=== PATIENT | female | born 1985 ===

== ENCOUNTER 2024-07-31 23:53 | Emergency (ER) | payer OTHER ==
[~2024-07-31] VITALS: Ht 160 cm; Wt 72.6 kg
[2024-08-01] MEDS ORDERED: FentaNYL Citrate 50 MCG/ML 2 ML Injection IV ONE (00:05)
[2024-08-01 00:19] LABS: BASOPHILS ABSOLUTE AUTO 0.05 K/mm3 (0.00-0.23); BASOPHILS PERCENT AUTO 0 % (0-2); EOSINOPHILS ABSOLUTE AUTO 0.25 K/mm3 (0.00-0.68); EOSINOPHILS PERCENT AUTO 2 % (0-6); Hematocrit 34.6 % (33.0-51.0); Hemoglobin 11.4 g/dL (11.5-16.0); IMMATURE GRAN ABSOLUTE AUTO 0.07 K/mm3 (0.00-0.10); IMMATURE GRAN PERCENT AUTO 0 % (0-1); LYMPHOCYTES ABSOLUTE AUTO 3.75 K/mm3 (0.84-5.20); LYMPHOCYTES PERCENT AUTO 23 % (21-46); MONOCYTES ABSOLUTE AUTO 1.22 K/mm3 (0.16-1.47); MONOCYTES PERCENT AUTO 7 % (4-13); Mean Corpuscular HGB 29.5 pg (26.0-34.0); Mean Corpuscular HGB Conc 32.9 g/dL (31.5-36.5); Mean Corpuscular Volume 90 fL (80-100); Mean Platelet Volume 9.9 fL (9.1-12.4); NEUTROPHILS ABSOLUTE AUTO 11.13 K/mm3 (1.96-9.15); NEUTROPHILS PERCENT AUTO 68 % (41-73); Platelet Count 232 K/mm3 (150-400); RDW Coefficient Variation 12.1 % (11.7-14.2); RDW Standard Deviation 39.8 fL (35.1-46.3); Red Blood Cell Count 3.86 M/mm3 (3.80-5.20); White Blood Cell Count 16.47 K/mm3 (4.00-11.30)
[2024-08-01 00:20] VITALS: BP 135/69
[2024-08-01 00:48] LABS: Albumin, Blood 2.8 g/dL (3.4-5.0); Albumin/Globulin Ratio 0.7 (0.8-1.8); Bilirubin, Total 0.2 mg/dL (0.1-1.0); Bun/Creatinine Ratio 16.2 (12.0-20.0); Calcium, Blood 8.9 mg/dL (8.5-10.1); Creatinine, Blood 0.55 mg/dL (0.40-1.00); Globulin, Blood 3.9 g/dL (2.2-4.0); Potassium, Blood 3.5 mmol/L (3.5-5.5); Total Protein, Blood 6.7 g/dL (6.4-8.2)
== END 2024-08-01 00:28 | disposition other institution (70) ==
LOC: ER 23:53
PROVIDERS: Student in an Organized Health Care Education/Training Program
DX: O03.9 Complete or unspecified spontaneous abortion without complication (principal); O62.3 Precipitate labor; Z3A.17 17 weeks gestation of pregnancy; Z37.1 Single stillbirth
CPT/HCPCS: 80053; 85025; 86850; 86900; 86901; 96374; 99284; J3010

== ENCOUNTER 2024-08-01 00:44 | Inpatient (IN) | payer OTHER ==
[2024-08-01] VITALS (43 sets, daily range): BP systolic 85–143; BP diastolic 43–68
[~2024-08-01] VITALS: Ht 167.6 cm; Wt 95.5 kg
[~2024-08-01 00:44] MED LIST: Misoprostol 200 MCG Tab PR ONE
[2024-08-01] MEDS ORDERED: Methylergonovine Maleate 0.2MG / ML 1ML Amp IM ONE (00:55)
[2024-08-01] MEDS ORDERED: Lactated Ringer's 1,000 ML IV ONE ×3 (00:57→05:05)
[2024-08-01] MEDS ORDERED: FentaNYL Citrate 50 MCG/ML 2 ML Injection IV PRN (01:15)
[2024-08-01] MEDS ORDERED: FentaNYL Citrate 50 MCG/ML 2 ML Injection ONE (01:19)
[2024-08-01] MEDS ORDERED: FentaNYL Citrate 50 MCG/ML 2 ML Injection IV ONE (01:55)
[2024-08-01] MEDS ORDERED: Ketorolac Tromethamine 30mg Vial IV PRN ×2 (01:55→02:05)
[2024-08-01] MEDS ORDERED: Witch Hazel/Glycerin PADS TOP PRN (02:05)
[2024-08-01] MEDS ORDERED: Lactated Ringer's 1,000 ML IV SCH (02:05)
[2024-08-01] MEDS ORDERED: Docusate Sodium 100 MG Cap PO PRN (02:05)
[2024-08-01] MEDS ORDERED: FLU VACC TS2024-25(6MOS UP)/PF 45 MCG/0.5 ML SYRINGE IM ONE (02:05)
[2024-08-01] MEDS ORDERED: Methylergonovine Maleate 0.2MG / ML 1ML Amp IM PRN (02:10)
[2024-08-01] MEDS ORDERED: Benzocaine/Benzethon Topical Anesthetic Spray 78GM TOP PRN (02:10)
[2024-08-01] MEDS ORDERED: Acetaminophen 325 MG TABLET PO PRN (02:10)
[2024-08-01] MEDS ORDERED: Misoprostol 200 MCG Tab PR PRN (02:10)
[2024-08-01 03:46] LABS: Hematocrit 23.9 % (33.0-51.0); Mean Corpuscular HGB 29.9 pg (26.0-34.0); Mean Corpuscular HGB Conc 33.5 g/dL (31.5-36.5); Mean Corpuscular Volume 89 fL (80-100); Mean Platelet Volume 10.2 fL (9.1-12.4); Platelet Count 188 K/mm3 (150-400); RDW Standard Deviation 39.2 fL (35.1-46.3); Red Blood Cell Count 2.68 M/mm3 (3.80-5.20); White Blood Cell Count 15.03 K/mm3 (4.00-11.30)
[2024-08-01] MEDS ORDERED: ePHEDrine Sulfate 50 MG/ML 1ML Injection ONE (03:54)
[2024-08-01 04:03] LABS: International Normalized Ratio 0.99; Prothrombin Time Results 10.6 Sec (9.7-11.5)
[2024-08-01] MEDS ORDERED: ePHEDrine Sulfate 50 MG/ML 1ML Injection XX PRN (04:10)
[2024-08-01] MEDS ORDERED: Misoprostol 100 MCG Tab PO ONE ×2 (04:20→04:45)
[2024-08-01] MEDS ORDERED: Misoprostol 200 MCG Tab PO ONE ×2 (04:50→09:20)
--- NOTE | 2024-08-01 05:27 | NUR ---
DR HDEZ UPDATED WITH BLEEDING AND BLOOD LOSS. BP'S SOFT, WILL GIVE 1 LITER LR BOLUS OVER 1-2 HOURS.
[2024-08-01] MEDS ORDERED: CeFAZolin Sodium 2,000 MG in NS 100 ML IV ONE (05:30)
[2024-08-01] MEDS ORDERED: OxyCODONE HCL 5 MG TAB PO PRN (06:45)
[2024-08-01] MEDS ORDERED: Acetaminophen 500 MG Tab PO PRN (06:45)
[2024-08-01 07:35] LABS: BASOPHILS ABSOLUTE AUTO 0.01 K/mm3 (0.00-0.23); BASOPHILS PERCENT AUTO 0 % (0-2); EOSINOPHILS ABSOLUTE AUTO 0.01 K/mm3 (0.00-0.68); EOSINOPHILS PERCENT AUTO 0 % (0-6); Hemoglobin 7.2 g/dL (11.5-16.0); IMMATURE GRAN ABSOLUTE AUTO 0.06 K/mm3 (0.00-0.10); IMMATURE GRAN PERCENT AUTO 1 % (0-1); LYMPHOCYTES ABSOLUTE AUTO 0.94 K/mm3 (0.84-5.20); LYMPHOCYTES PERCENT AUTO 7 % (21-46); MONOCYTES ABSOLUTE AUTO 0.31 K/mm3 (0.16-1.47); MONOCYTES PERCENT AUTO 2 % (4-13); Mean Corpuscular HGB 30.1 pg (26.0-34.0); Mean Corpuscular HGB Conc 34.3 g/dL (31.5-36.5); Mean Corpuscular Volume 88 fL (80-100); Mean Platelet Volume 10.2 fL (9.1-12.4); NEUTROPHILS ABSOLUTE AUTO 11.38 K/mm3 (1.96-9.15); NEUTROPHILS PERCENT AUTO 90 % (41-73); Platelet Count 199 K/mm3 (150-400); RDW Coefficient Variation 12.2 % (11.7-14.2); RDW Standard Deviation 39.2 fL (35.1-46.3); Red Blood Cell Count 2.39 M/mm3 (3.80-5.20); White Blood Cell Count 12.71 K/mm3 (4.00-11.30)
[2024-08-01 07:43] LABS: Prothrombin Time Results 10.7 Sec (9.7-11.5)
[2024-08-01] MEDS ORDERED: Prenatal Vit/FE Fumarate/FA 1 Tab PO SCH (09:00)
--- NOTE | 2024-08-01 09:16 | NUR ---
DR GARCIA UPDATED AT 0830 OF LABS AND PATIENT HAS NO S/S OF DIZZINESS OR WEAKNESS WHEN STANDING, DOES NOT WANT BLOOD UNLESS EMERGANT, LABS TO BE DONE AT 1100 AND RE-EVALUATE, THIS WAS A SURROGATE AND BIO PARENTS HAVE BEEN NOTIFIED THEY ARE KAREN AND JEANNIE SHAIKH AND CAN HAVE ANY INFORMATION ON BABY AND ALL ACCESS TO BABY
[2024-08-01] MEDS ORDERED: Methylergonovine Maleate 0.2MG / ML 1ML Amp IV ONE (09:20)
[2024-08-01 11:19] LABS: BASOPHILS PERCENT AUTO 0 % (0-2); EOSINOPHILS PERCENT AUTO 0 % (0-6); Hematocrit 19.7 % (33.0-51.0); Hemoglobin 6.7 g/dL (11.5-16.0); IMMATURE GRAN ABSOLUTE AUTO 0.05 K/mm3 (0.00-0.10); IMMATURE GRAN PERCENT AUTO 1 % (0-1); LYMPHOCYTES ABSOLUTE AUTO 0.85 K/mm3 (0.84-5.20); LYMPHOCYTES PERCENT AUTO 8 % (21-46); MONOCYTES ABSOLUTE AUTO 0.36 K/mm3 (0.16-1.47); MONOCYTES PERCENT AUTO 3 % (4-13); Mean Corpuscular HGB 30.2 pg (26.0-34.0); Mean Corpuscular Volume 89 fL (80-100); Mean Platelet Volume 10.2 fL (9.1-12.4); NEUTROPHILS PERCENT AUTO 88 % (41-73); Platelet Count 179 K/mm3 (150-400); RDW Coefficient Variation 12.2 % (11.7-14.2); RDW Standard Deviation 39.5 fL (35.1-46.3); Red Blood Cell Count 2.22 M/mm3 (3.80-5.20); White Blood Cell Count 10.56 K/mm3 (4.00-11.30)
--- NOTE | 2024-08-01 11:45 | NUR ---
DR GARCIA CALLED TO UPDATE OF NEW LAB VALUES, LEFT MESSAGE FOR HER TO CALL BACK, PATIENT DENIES S/S OF DIZZINESS OR BEING LIGHT HEADED, B/P 109/57 WITH PULSE 95, UP TO BATHROOM WITHOUT ASSISTANCE, VOIDED 500 CC CHANGED PAD 1 GM OF BLOOD ON PAD
--- NOTE | 2024-08-01 12:11 | NUR ---
DR GARCIA CALLED BACK UPDATED OF LAB VALUES, PATIENT IS ASYMPTOMATIC SO HOLDON BLOOD FOR NOW WILL RE-EVALUATE AT [address] GARCIA WILL BE IN TO EVALUATE
[2024-08-01] MEDS ORDERED: Witch Hazel/Glycerin PADS TOP ONE (15:25)
[2024-08-01 16:46] LABS: BASOPHILS ABSOLUTE AUTO 0.01 K/mm3 (0.00-0.23); BASOPHILS PERCENT AUTO 0 % (0-2); EOSINOPHILS ABSOLUTE AUTO 0.06 K/mm3 (0.00-0.68); EOSINOPHILS PERCENT AUTO 1 % (0-6); IMMATURE GRAN ABSOLUTE AUTO 0.04 K/mm3 (0.00-0.10); IMMATURE GRAN PERCENT AUTO 0 % (0-1); LYMPHOCYTES ABSOLUTE AUTO 1.83 K/mm3 (0.84-5.20); LYMPHOCYTES PERCENT AUTO 18 % (21-46); MONOCYTES ABSOLUTE AUTO 0.59 K/mm3 (0.16-1.47); MONOCYTES PERCENT AUTO 6 % (4-13); Mean Corpuscular HGB 29.9 pg (26.0-34.0); Mean Corpuscular HGB Conc 34.5 g/dL (31.5-36.5); Mean Corpuscular Volume 87 fL (80-100); Mean Platelet Volume 10.4 fL (9.1-12.4); NEUTROPHILS PERCENT AUTO 75 % (41-73); Platelet Count 172 K/mm3 (150-400); RDW Coefficient Variation 12.3 % (11.7-14.2); RDW Standard Deviation 38.7 fL (35.1-46.3); Red Blood Cell Count 2.01 M/mm3 (3.80-5.20); White Blood Cell Count 9.93 K/mm3 (4.00-11.30)
[2024-08-01 16:51] LABS: Hematocrit 17.4 % (33.0-51.0)
--- NOTE | 2024-08-01 17:38 | NUR ---
[id number] DR GARCIA AT BEDSIDE DISCUSSING GETTING BLOOD PATIENT DOES NOT BLOOD AT THIS TIME AGREE TO IV IRON
[2024-08-01] MEDS ORDERED: Sod Ferric Gluc Complx/Sucrose 125 MG in NS 100 ML IV ONE (17:45)
--- NOTE | 2024-08-01 20:00 | NUR ---
REceived pt into care. VSS. Assessment WNL. Surrogate parents here to view baby. Memory box provided. Papers signed for home. Pt feels well after transfusion. 1mL of blood weighed on pad. DC instructions provided to pt re pelvic rest and follow up appointments. pt aware of same. States feel good to go home. Iv removed, cannula intact. DC as per orders. pt left walking off unit with SO and daughter at side. Surrogate parents left after viewing with memory box and knitted blanket from baby. home arrangments made, and called for pickup for same. No further voiced concerns.
== END 2024-08-01 20:15 | disposition home or self-care (01) | DRG 770 ==
LOC: OBS 00:44 → BC 00:46 → OBS 01:19 → BC 01:22
PROVIDERS: Obstetrics & Gynecology; ADMIT Obstetrics & Gynecology
PROC: 10D17ZZ Extraction of Products of Conception, Retained, Via Natural or Artificial Opening (ICD-10-PCS; principal; 2024-08-01)
DX: O03.4 Incomplete spontaneous abortion without complication (principal); D62 Acute posthemorrhagic anemia; Z3A.17 17 weeks gestation of pregnancy; Z37.1 Single stillbirth; Z90.89 Acquired absence of other organs; Z98.890 Other specified postprocedural states; Z87.891 Personal history of nicotine dependence
CPT/HCPCS: 36415; 59414; 85025; 85027; 85384; 85610; 85730; 86850; 86900; 86901; 86923; A9270; J0690; J1885; J2210; J2916; J3010; J7120

== ENCOUNTER 2024-08-29 11:28 | Observation (INO) | payer OTHER ==
[~2024-08-29] VITALS: Ht 167.6 cm; Wt 90.7 kg
[2024-08-29 12:54] LABS: BASOPHILS ABSOLUTE AUTO 0.03 K/mm3 (0.00-0.23); BASOPHILS PERCENT AUTO 1 % (0-2); EOSINOPHILS ABSOLUTE AUTO 0.25 K/mm3 (0.00-0.68); EOSINOPHILS PERCENT AUTO 4 % (0-6); Hematocrit 23.6 % (33.0-51.0); Hemoglobin 7.2 g/dL (11.5-16.0); IMMATURE GRAN ABSOLUTE AUTO 0.01 K/mm3 (0.00-0.10); IMMATURE GRAN PERCENT AUTO 0 % (0-1); LYMPHOCYTES ABSOLUTE AUTO 2.27 K/mm3 (0.84-5.20); LYMPHOCYTES PERCENT AUTO 35 % (21-46); MONOCYTES ABSOLUTE AUTO 0.46 K/mm3 (0.16-1.47); MONOCYTES PERCENT AUTO 7 % (4-13); Mean Corpuscular HGB 26.9 pg (26.0-34.0); Mean Corpuscular HGB Conc 30.5 g/dL (31.5-36.5); Mean Corpuscular Volume 88 fL (80-100); Mean Platelet Volume 10.4 fL (9.1-12.4); NEUTROPHILS ABSOLUTE AUTO 3.52 K/mm3 (1.96-9.15); NEUTROPHILS PERCENT AUTO 54 % (41-73); Platelet Count 252 K/mm3 (150-400); RDW Coefficient Variation 13.3 % (11.7-14.2); RDW Standard Deviation 42.7 fL (35.1-46.3); Red Blood Cell Count 2.68 M/mm3 (3.80-5.20); White Blood Cell Count 6.54 K/mm3 (4.00-11.30)
[2024-08-29 13:14] LABS: Albumin, Blood 3.3 g/dL (3.4-5.0); Bilirubin, Total 0.2 mg/dL (0.1-1.0); Bun/Creatinine Ratio 22.2 (12.0-20.0); Calcium, Blood 8.8 mg/dL (8.5-10.1); Creatinine, Blood 0.72 mg/dL (0.40-1.00); Globulin, Blood 3.3 g/dL (2.2-4.0); Potassium, Blood 3.9 mmol/L (3.5-5.5); Total Protein, Blood 6.6 g/dL (6.4-8.2)
[2024-08-29 16:39] LABS: Hematocrit 22.9 % (33.0-51.0); Hemoglobin 6.8 g/dL (11.5-16.0)
[2024-08-29] MEDS ORDERED: NS 1,000 ML IV SCH ×2 (16:45→18:05)
[2024-08-29] MEDS ORDERED: Noreth A-ET Estra/FE Fumarate 1/20 Tab PO ONE (16:55)
[2024-08-29] MEDS ORDERED: FLU VACC TS2024-25(6MOS UP)/PF 45 MCG/0.5 ML SYRINGE IM SCH (17:50)
[2024-08-29] MEDS ORDERED: Ondansetron HCl 2 MG / ML 2ML Vial IV PRN (17:50)
[2024-08-29] MEDS ORDERED: Lactated Ringer's 1,000 ML IV SCH (17:50)
[2024-08-29 20:28] VITALS: BP 134/72
[2024-08-29 21:21] VITALS: BP 119/68
[2024-08-29 22:09] VITALS: BP 112/69
--- NOTE | 2024-08-29 22:15 | NUR ---
37g of blood in med pull up
--- NOTE | 2024-08-29 22:30 | NUR ---
2200- BLOOD TRANSFUSION COMPLETED. LAB DRAW @ 0000 HRS. NO ISSUES NOTED.
[2024-08-29 23:41] VITALS: BP 111/55
[2024-08-30] VITALS (14 sets, daily range): BP systolic 101–120; BP diastolic 57–71
--- NOTE | 2024-08-30 00:30 | NUR ---
22g of blood in med pull up.
[2024-08-30 01:25] LABS: BASOPHILS ABSOLUTE AUTO 0.03 K/mm3 (0.00-0.23); BASOPHILS PERCENT AUTO 0 % (0-2); EOSINOPHILS ABSOLUTE AUTO 0.29 K/mm3 (0.00-0.68); EOSINOPHILS PERCENT AUTO 4 % (0-6); Hematocrit 22.4 % (33.0-51.0); Hemoglobin 6.9 g/dL (11.5-16.0); IMMATURE GRAN ABSOLUTE AUTO 0.01 K/mm3 (0.00-0.10); IMMATURE GRAN PERCENT AUTO 0 % (0-1); LYMPHOCYTES ABSOLUTE AUTO 2.58 K/mm3 (0.84-5.20); LYMPHOCYTES PERCENT AUTO 32 % (21-46); MONOCYTES PERCENT AUTO 7 % (4-13); Mean Corpuscular HGB 27.5 pg (26.0-34.0); Mean Corpuscular HGB Conc 30.8 g/dL (31.5-36.5); Mean Corpuscular Volume 89 fL (80-100); Mean Platelet Volume 10.6 fL (9.1-12.4); NEUTROPHILS ABSOLUTE AUTO 4.69 K/mm3 (1.96-9.15); NEUTROPHILS PERCENT AUTO 57 % (41-73); Platelet Count 201 K/mm3 (150-400); RDW Coefficient Variation 13.5 % (11.7-14.2); RDW Standard Deviation 44.3 fL (35.1-46.3); Red Blood Cell Count 2.51 M/mm3 (3.80-5.20)
--- NOTE | 2024-08-30 02:45 | NUR ---
0240- DR HDEZ CALLED AND INFORMED OF PT'S HGB AFTER TRANSFUSION. PT OK'D TO RECIEVE ANOTHER UNIT OF PRBC'S.
[2024-08-30] MEDS ORDERED: NS 500 ML IV SCH (02:50)
--- NOTE | 2024-08-30 04:22 | NUR ---
18g of blood in med pull up
--- NOTE | 2024-08-30 04:24 | NUR ---
NOC SUMMARY- PT ARRIVED TO ROOM IN NO DISTRESSS. PT HAD UNIT OF PRBC RUNNING AND TOLERATING FINE. PT HAS BEEN SPOTTING SOME. BLOOD PRODUCTS HAVE BEEN WEIGHED ORDERED. PROVIDER CALLED AND INFORMED OF PT'S HGB. PROVIDER ORDERED ADDITIONAL UNIT PRBC. PT AGREED WITH THIS DECISION. CURRENTLY PT RECIEVING SECOND UNIT OF PRBC AND TOLERATING FINE. PT HAS REMAINED NPO SINCE SD. CALL LIGHT IN REACH.
--- NOTE | 2024-08-30 04:58 | NUR ---
74g of blood and golf ball size clots in med pull up
[2024-08-30] MEDS ORDERED: FentaNYL Citrate 50 MCG/ML 2 ML Injection ONE (08:10)
[2024-08-30] MEDS ORDERED: propofoL 20 ML IV ONE (08:10)
[2024-08-30] MEDS ORDERED: Ketorolac Tromethamine 30mg Vial ONE (08:11)
[2024-08-30] MEDS ORDERED: Ondansetron HCl 2 MG / ML 2ML Vial ONE (08:11)
[2024-08-30] MEDS ORDERED: Dexamethasone Sod Phos 10 MG/ML 1ML VIAL ONE (08:11)
[2024-08-30] MEDS ORDERED: Lidocaine HCl 1% 5 ML SYR INJ ONE (08:25)
[2024-08-30] MEDS ORDERED: Midazolam HCl 1MG / ML 2ML Vial IV PRN (08:25)
[2024-08-30 08:30] LABS: BASOPHILS ABSOLUTE AUTO 0.04 K/mm3 (0.00-0.23); BASOPHILS PERCENT AUTO 1 % (0-2); EOSINOPHILS ABSOLUTE AUTO 0.33 K/mm3 (0.00-0.68); EOSINOPHILS PERCENT AUTO 4 % (0-6); Hematocrit 26.9 % (33.0-51.0); Hemoglobin 8.3 g/dL (11.5-16.0); IMMATURE GRAN ABSOLUTE AUTO 0.02 K/mm3 (0.00-0.10); IMMATURE GRAN PERCENT AUTO 0 % (0-1); LYMPHOCYTES ABSOLUTE AUTO 2.29 K/mm3 (0.84-5.20); LYMPHOCYTES PERCENT AUTO 31 % (21-46); MONOCYTES ABSOLUTE AUTO 0.49 K/mm3 (0.16-1.47); MONOCYTES PERCENT AUTO 7 % (4-13); Mean Corpuscular HGB Conc 30.9 g/dL (31.5-36.5); Mean Corpuscular Volume 88 fL (80-100); Mean Platelet Volume 10.8 fL (9.1-12.4); NEUTROPHILS ABSOLUTE AUTO 4.27 K/mm3 (1.96-9.15); NEUTROPHILS PERCENT AUTO 57 % (41-73); Platelet Count 227 K/mm3 (150-400); RDW Coefficient Variation 13.6 % (11.7-14.2); Red Blood Cell Count 3.07 M/mm3 (3.80-5.20); White Blood Cell Count 7.44 K/mm3 (4.00-11.30)
--- NOTE | 2024-08-30 08:32 | NUR ---
PT TO DAY SURGERY WITH OR NURSE.
[2024-08-30] MEDS ORDERED: Noreth A-ET Estra/FE Fumarate 1/20 Tab PO SCH ×3 (09:00→21:00)
[2024-08-30] MEDS ORDERED: Phenylephrine HCl 100 MCG/ML-NS 10MLSYR (1MG/10ML) ONE (09:40)
[2024-08-30] MEDS ORDERED: Glycopyrrolate 0.2 MG/ML 5ML VIAL ONE (09:42)
[2024-08-30] MEDS ORDERED: Naloxone HCl 0.4MG / ML 1ML Vial IV PRN (10:30)
[2024-08-30] MEDS ORDERED: DiphenhydrAMINE HCL 25 MG Cap PO PRN (10:30)
[2024-08-30] MEDS ORDERED: OxyCODONE HCL 5 MG TAB PO PRN (10:30)
[2024-08-30] MEDS ORDERED: Ondansetron HCl 2 MG / ML 2ML Vial IV PRN (10:30)
[2024-08-30] MEDS ORDERED: Metoclopramide HCl 5MG / ML 2ML Vial IV PRN (10:35)
[2024-08-30] MEDS ORDERED: HYDROmorphone HCl/Pf 1MG SYR IV PRN (10:35)
[2024-08-30] MEDS ORDERED: Acetaminophen 500 MG Tab PO PRN (10:35)
[2024-08-30] MEDS ORDERED: Lactated Ringer's 1,000 ML IV ONE (10:35)
--- NOTE | 2024-08-30 10:48 | NUR ---
ARRIVAL NOTE PT A/OX4. PT IS TIRED AND DENIES ANY PAIN. PT ABLE TO STAND AND TRANSFER FROM [place] TO BED. VITALS CHECKED AND ARE WNL. PT PROVIDED WARM BLANKETS. SIDE RAILS UP AND CALL LIGHT IN REACH. AT BEDSIDE.
[2024-08-30 12:17] LABS: BASOPHILS ABSOLUTE AUTO 0.03 K/mm3 (0.00-0.23); BASOPHILS PERCENT AUTO 0 % (0-2); EOSINOPHILS PERCENT AUTO 1 % (0-6); Hematocrit 26.6 % (33.0-51.0); Hemoglobin 8.4 g/dL (11.5-16.0); IMMATURE GRAN ABSOLUTE AUTO 0.05 K/mm3 (0.00-0.10); IMMATURE GRAN PERCENT AUTO 1 % (0-1); LYMPHOCYTES ABSOLUTE AUTO 1.22 K/mm3 (0.84-5.20); LYMPHOCYTES PERCENT AUTO 13 % (21-46); MONOCYTES ABSOLUTE AUTO 0.18 K/mm3 (0.16-1.47); MONOCYTES PERCENT AUTO 2 % (4-13); Mean Corpuscular HGB 27.7 pg (26.0-34.0); Mean Corpuscular HGB Conc 31.6 g/dL (31.5-36.5); Mean Corpuscular Volume 88 fL (80-100); Mean Platelet Volume 10.5 fL (9.1-12.4); NEUTROPHILS ABSOLUTE AUTO 8.09 K/mm3 (1.96-9.15); NEUTROPHILS PERCENT AUTO 84 % (41-73); Platelet Count 238 K/mm3 (150-400); RDW Coefficient Variation 13.8 % (11.7-14.2); RDW Standard Deviation 43.2 fL (35.1-46.3); Red Blood Cell Count 3.03 M/mm3 (3.80-5.20); White Blood Cell Count 9.67 K/mm3 (4.00-11.30)
[2024-08-30] MEDS ORDERED: ACET500 PO (13:23)
[2024-08-30] MEDS ORDERED: NORGESTIMATE-E1 EAC2 PO (13:23)
[2024-08-30] MEDS ORDERED: FEROSUL325 M1 PO (13:24)
[2024-08-30] MEDS ORDERED: IBUP800 PO (13:24)
[2024-08-30] MEDS ORDERED: Ketorolac Tromethamine 30mg Vial IV PRN (14:00)
--- NOTE | 2024-08-30 14:22 | NUR ---
DISCHARGE NOTE PT A/OX4. PT HAS VOIDED. NO NEW VAGINAL BLEEDING. PT AMBULATING WELL. NO PAIN OR COMPLAINTS. PT VERBALIZES UNDERSTANDING OF D/C INST AND QUESTIONS ANSWERED. PT TO F/U WITH SURGEON IN 2-3 WEEKS. PT AMBULATES TO LOBBY WITH HER IN NO DISTRESS.
== END 2024-08-30 14:20 | disposition home or self-care (01) ==
LOC: ER 11:28 → SURS 11:29 → ERHOLD 11:29 → SURS 20:15
PROVIDERS: Obstetrics & Gynecology; Student in an Organized Health Care Education/Training Program; ADMIT Obstetrics & Gynecology
PROC: 0UDB8ZZ Extraction of Endometrium, Via Natural or Artificial Opening Endoscopic (ICD-10-PCS; principal; 2024-08-30 09:30)
DX: D25.9 Leiomyoma of uterus, unspecified (principal); N71.1 Chronic inflammatory disease of uterus; D50.0 Iron deficiency anemia secondary to blood loss (chronic); Z87.891 Personal history of nicotine dependence; Z87.59 Personal history of other complications of pregnancy, childbirth and the puerperium
CPT/HCPCS: 36415; 36430; 76830; 76856; 80053; 85014; 85018; 85025; 86850; 86900; 86901; 86923; 88305; 94760; 99285-25; A9270; G0378; J1100; J1885; J2250; J2371; J2405; J2704; J3010; J7030; J7120; P9016